=== PATIENT | male | born 1985 | race Caucasian/White ===

== ENCOUNTER 2019-05-12 12:29 | Inpatient (IN) ==
[2019-05-12] MEDS ORDERED: Isovue-370 500 ML BOTTLE IVP ONE (14:08)
[2019-05-12 15:33] LABS: Mean Platelet Volume 8.2 fL (9.4-12.4); Red Cell Distribution Width 12.3 % (11.5-14.5)
[2019-05-12 15:38] LABS: Basophils # 0.1 K/mcL (0.0-0.2); Basophils % 0.2 %; Eosinophils # 0.1 K/mcL (0.0-0.6); Eosinophils % 0.5 %; Hematocrit 42.9 % (37.5-50.1); Hemoglobin 14.2 g/dL (12.9-16.9); Immature Granulocytes % 6.7 % (0-4); Lymphocytes # 2.7 K/mcL (0.6-4.6); Lymphocytes % 10.4 %; Mean Corpuscular HGB Conc 33.1 g/dL (31.6-35.5); Mean Corpuscular Hemoglobin 30.4 pg (28.0-33.3); Mean Corpuscular Volume 91.9 fL (83.0-100.0); Monocytes # 2.4 K/mcL (0.0-1.3); Monocytes % 9.2 %; Neutrophils # 19.2 K/mcL (1.6-8.9); Platelet Count 481 K/mcL (140-400); Red Blood Count 4.67 M/mcL (4.19-5.50); White Blood Count 26.3 K/mcL (4.3-11.1)
[2019-05-12 15:53] LABS: Alanine Aminotransferase 80 Units/L (7-52); Albumin 3.6 g/dL (3.5-5.7); Albumin/Globulin Ratio 0.8 (1.1-2.2); Alkaline Phosphatase 201 Units/L (34-104); Aspartate Amino Transferase 25 Units/L (13-39); BUN/Creatinine Ratio 14 (6-26); Bilirubin,Total 0.5 mg/dL (0.3-1.0); Blood Urea Nitrogen 10 mg/dL (6-20); Calcium 9.1 mg/dL (8.6-10.3); Carbon Dioxide 27 mEq/L (23-29); Chloride 95 mEq/L (98-107); Globulin 4.5 g/dL (2.4-3.5); Glucose 102 mg/dL (70-105); Osmolality,Calculated 273 (280-300); Potassium 4.2 mEq/L (3.5-5.1); Sodium 132 mEq/L (136-145); Total Protein 8.1 g/dL (6.4-8.9); eGFR For African Americans > 60 (> 60); eGFR For Non-African Americans > 60 (> 60)
[2019-05-12] MEDS ORDERED: Piperacillin/Tazobactam 3.375 GM in 0.9 % Sodium Chloride Mini Bag 100 ML IVPB ONE (15:55)
[2019-05-12 16:05] LABS: Large Platelets Present (Not Present); Platelet Estimate Increased (Normal); Reactive Lymphocytes Present (Not Present); Toxic Granulation Present (Not Present); Toxic Vacuolation Present (Not Present)
[2019-05-12 16:06] LABS: Hypersegmented Neutrophils Present (Not Present)
[2019-05-12] MEDS ORDERED: Ibuprofen 600 MG TABLET PO ONE (16:57)
[2019-05-12] MEDS ORDERED: Naloxone 0.4 MG/ML INJ IVP PRN (18:23)
[2019-05-12] MEDS ORDERED: Ondansetron 4 MG/2 ML VIAL IVP PRN (18:23)
[2019-05-12] MEDS ORDERED: 0.9 % Sodium Chloride 3,000 ML IVC ONE (18:34)
[2019-05-12] MEDS ORDERED: 0.9 % Sodium Chloride 500 ML IV.SOLN IVC ONE (18:35)
[2019-05-12] MEDS ORDERED: Vancomycin 500 MG in 0.9 % Sodium Chloride Mini Bag 100 ML IVPB ONE (21:31)
[2019-05-12] MEDS: 0.9 % Sodium Chloride 1,000 ML IVC SCH (22:06)
[2019-05-12] MEDS: *HR* Heparin 5,000 UNIT/ML VIAL SQ SCH (22:07)
[2019-05-12] MEDS: Piperacillin/Tazobactam 3.375 GM in 0.9 % Sodium Chloride Mini Bag 100 ML IVPB SCH (23:46)
[2019-05-13 01:32] LABS: Bilirubin,Urine Negative (Negative); Blood,Urine Negative (Negative); Clarity,Urine Clear (Clear); Color,Urine Yellow (Yellow); Glucose,Urine (UA) Normal (Normal); Ketones,Urine Negative (Negative); Leukocyte Esterase,Urine Negative (Negative); Nitrite,Urine Negative (Negative); Protein,Urine Negative (Neg-Trace); Specific Gravity,Urine 1.016 (1.010-1.025); Urobilinogen,Urine Normal (Normal)
[2019-05-13 02:05] LABS: Hematocrit 41.3 % (37.5-50.1); Hemoglobin 13.5 g/dL (12.9-16.9); Mean Corpuscular HGB Conc 32.7 g/dL (31.6-35.5); Mean Corpuscular Hemoglobin 30.3 pg (28.0-33.3); Mean Corpuscular Volume 92.6 fL (83.0-100.0); Mean Platelet Volume 8.2 fL (9.4-12.4); Platelet Count 473 K/mcL (140-400); Red Blood Count 4.46 M/mcL (4.19-5.50); Red Cell Distribution Width 12.3 % (11.5-14.5); White Blood Count 22.7 K/mcL (4.3-11.1)
[2019-05-13 02:20] LABS: BUN/Creatinine Ratio 12 (6-26); Blood Urea Nitrogen 9 mg/dL (6-20); Calcium 8.8 mg/dL (8.6-10.3); Carbon Dioxide 28 mEq/L (23-29); Chloride 100 mEq/L (98-107); Glucose 125 mg/dL (70-105); Osmolality,Calculated 282 (280-300); Sodium 136 mEq/L (136-145); eGFR For African Americans > 60 (> 60); eGFR For Non-African Americans > 60 (> 60)
[2019-05-13 02:44] LABS: Lymphocytes # 2.7 K/mcL (0.6-4.6); Monocytes # 2.7 K/mcL (0.0-1.3); Neutrophils # 17.3 K/mcL (1.6-8.9)
[2019-05-13 02:45] LABS: Hypersegmented Neutrophils Present (Not Present); Large Platelets Present (Not Present); Platelet Estimate Increased (Normal); Reactive Lymphocytes Present (Not Present); Toxic Granulation Present (Not Present)
[2019-05-13] MEDS: *HR* Heparin 5,000 UNIT/ML VIAL SQ SCH ×3 (06:15→21:35)
[2019-05-13] MEDS: Piperacillin/Tazobactam 3.375 GM in 0.9 % Sodium Chloride Mini Bag 100 ML IVPB SCH ×2 (10:26→16:11)
[2019-05-13] MEDS: 0.9 % Sodium Chloride 1,000 ML IVC SCH (10:26)
[2019-05-13] MEDS: Acetaminophen 325 MG TABLET PO PRN ×3 (10:56→23:59)
[2019-05-14] MEDS: *HR* Heparin 5,000 UNIT/ML VIAL SQ SCH ×3 (05:16→20:56)
[2019-05-14 05:35] LABS: Eosinophils # 0.4 K/mcL (0.0-0.6); Hematocrit 39.6 % (37.5-50.1); Hemoglobin 13.1 g/dL (12.9-16.9); Mean Corpuscular HGB Conc 33.1 g/dL (31.6-35.5); Mean Corpuscular Hemoglobin 30.1 pg (28.0-33.3); Mean Platelet Volume 8.2 fL (9.4-12.4); Platelet Count 450 K/mcL (140-400); Red Blood Count 4.35 M/mcL (4.19-5.50); Red Cell Distribution Width 12.2 % (11.5-14.5)
[2019-05-14 05:56] LABS: Lymphocytes # 2.9 K/mcL (0.6-4.6); Monocytes # 1.1 K/mcL (0.0-1.3); Neutrophils # 12.6 K/mcL (1.6-8.9)
[2019-05-14 06:33] LABS: BUN/Creatinine Ratio 16 (6-26); Blood Urea Nitrogen 12 mg/dL (6-20); Carbon Dioxide 27 mEq/L (23-29); Chloride 100 mEq/L (98-107); Glucose 109 mg/dL (70-105); Osmolality,Calculated 284 (280-300); Potassium 4.3 mEq/L (3.5-5.1); Sodium 137 mEq/L (136-145); eGFR For African Americans > 60 (> 60); eGFR For Non-African Americans > 60 (> 60)
[2019-05-14] MEDS ORDERED: Ondansetron 4 MG/2 ML VIAL ONE (07:04)
[2019-05-14] MEDS ORDERED: *HR* FentaNYL (PF) 100 MCG/2 ML VIAL ONE ×2 (07:04→10:27)
[2019-05-14] MEDS ORDERED: Lidocaine -MPF 4% 5 ML AMPUL ONE (07:04)
[2019-05-14] MEDS ORDERED: *HR* Succinylcholine 200 MG/10 ML VIAL IVP ONE (07:04)
[2019-05-14] MEDS ORDERED: *HR* Midazolam HCl 5 MG/5 ML VIAL IVP ONE (07:04)
[2019-05-14] MEDS ORDERED: *HR* Propofol 200 MG/20 ML VIAL IVP ONE (07:04)
[2019-05-14] MEDS ORDERED: Lidocaine -MPF 2% 2 ML VIAL ONE (07:04)
[2019-05-14] MEDS ORDERED: *HR* Rocuronium Bromide 50 MG/5 ML VIAL ONE ×2 (07:04→09:06)
[2019-05-14] MEDS ORDERED: Dexamethasone 4 MG/ML VIAL ONE (07:04)
[2019-05-14] MEDS ORDERED: Ipratropium/Albuterol Neb 3 ML IH PRN (07:27)
[2019-05-14] MEDS ORDERED: Acetaminophen IV 1,000 MG/100 ML INFUS..BTL IVPB ONE (07:27)
[2019-05-14] MEDS ORDERED: Acetaminophen IV 1,000 MG/100 ML INFUS..BTL ONE (07:28)
[2019-05-14] MEDS ORDERED: Racepinephrine Neb 0.5 ML VIAL IH ONE (07:29)
[2019-05-14] MEDS ORDERED: *HR* HYDROmorphone (PF) 1 MG/ML SYRINGE IVP PRN (07:29)
[2019-05-14] MEDS ORDERED: *HR* Promethazine 25 MG/ML VIAL IVP PRN (07:29)
[2019-05-14] MEDS ORDERED: Ondansetron 4 MG/2 ML VIAL IVP ONE (07:29)
[2019-05-14] MEDS ORDERED: *HR* OxyCODONE Immed Rel 5 MG TABLET PO PRN (07:29)
[2019-05-14] MEDS: Piperacillin/Tazobactam 3.375 GM in 0.9 % Sodium Chloride Mini Bag 100 ML IVPB SCH ×4 (08:45→23:55)
[2019-05-14] MEDS ORDERED: SODIUM CHLORIDE IRRIGATION IR ONE ×2 (10:00→10:57)
[2019-05-14] MEDS ORDERED: VANCOMYCIN IR ONE ×2 (10:00→10:57)
[2019-05-14] MEDS ORDERED: BACITRACIN IR ONE ×2 (10:00→10:57)
[2019-05-14] MEDS ORDERED: *HR* HYDROMORPHONE 2 MG/ML VIAL ONE (10:27)
[2019-05-14] MEDS ORDERED: *HR* HYDROcodone/Acet 5/325 mg TABLET PO PRN ×2 (10:57→13:27)
[2019-05-14] MEDS ORDERED: Ondansetron 4 MG/2 ML VIAL IVP PRN (10:57)
[2019-05-14] MEDS ORDERED: Naloxone 0.4 MG/ML INJ IVP PRN (10:57)
[2019-05-14] MEDS: 0.9 % Sodium Chloride 1,000 ML IVC SCH ×2 (13:45→21:45)
[2019-05-14] MEDS: Gabapentin 300 MG CAPSULE PO SCH ×2 (13:45→20:56)
[2019-05-14] MEDS: Famotidine 20 MG TABLET PO SCH (20:55)
[2019-05-14] MEDS: *HR* HYDROcodone/Acet 5/325 mg TABLET PO PRN (20:56)
[2019-05-15] MEDS: *HR* HYDROcodone/Acet 5/325 mg TABLET PO PRN ×3 (03:50→17:07)
[2019-05-15 04:20] LABS: Basophils # 0.1 K/mcL (0.0-0.2); Basophils % 0.3 %; Eosinophils # 0.1 K/mcL (0.0-0.6); Eosinophils % 0.3 %; Hematocrit 37.3 % (37.5-50.1); Hemoglobin 12.1 g/dL (12.9-16.9); Immature Granulocytes % 2.2 % (0-4); Lymphocytes # 2.7 K/mcL (0.6-4.6); Lymphocytes % 11.3 %; Mean Corpuscular HGB Conc 32.4 g/dL (31.6-35.5); Mean Corpuscular Volume 92.6 fL (83.0-100.0); Mean Platelet Volume 8.1 fL (9.4-12.4); Monocytes # 2.4 K/mcL (0.0-1.3); Monocytes % 10.1 %; Neutrophils # 18.2 K/mcL (1.6-8.9); Platelet Count 469 K/mcL (140-400); Red Blood Count 4.03 M/mcL (4.19-5.50); Red Cell Distribution Width 12.3 % (11.5-14.5); Segmented Neutrophils % 75.8 %
[2019-05-15 04:39] LABS: Calcium 8.3 mg/dL (8.6-10.3); Potassium 5.3 mEq/L (3.5-5.1)
[2019-05-15] MEDS: 0.9 % Sodium Chloride 1,000 ML IVC SCH ×3 (06:03→19:46)
[2019-05-15] MEDS: *HR* Heparin 5,000 UNIT/ML VIAL SQ SCH ×3 (06:04→20:17)
[2019-05-15] MEDS: Famotidine 20 MG TABLET PO SCH (07:42)
[2019-05-15] MEDS: Gabapentin 300 MG CAPSULE PO SCH ×2 (07:42→20:16)
[2019-05-15] MEDS: Piperacillin/Tazobactam 3.375 GM in 0.9 % Sodium Chloride Mini Bag 100 ML IVPB SCH ×2 (07:43→19:47)
[2019-05-15] MEDS ORDERED: Iron Sucrose Complex 400 MG in 0.9 % Sodium Chloride 250 ML IVPB ONE (08:58)
[2019-05-15 11:58] LABS: Calcium 7.9 mg/dL (8.6-10.3); Potassium 4.8 mEq/L (3.5-5.1)
[2019-05-15] MEDS ORDERED: 0.9 % Sodium Chloride 500 ML IV.SOLN IVC ONE (13:38)
[2019-05-15] MEDS ORDERED: Acetaminophen IV 1,000 MG/100 ML INFUS..BTL IVPB SCH (16:00)
[2019-05-15 18:18] LABS: Calcium 7.9 mg/dL (8.6-10.3); Potassium 5.2 mEq/L (3.5-5.1)
[2019-05-15] MEDS ORDERED: 0.9 % Sodium Chloride 1,000 ML IVC ONE (18:49)
[2019-05-16] MEDS: 0.9 % Sodium Chloride 1,000 ML IVC SCH ×3 (00:10→22:38)
[2019-05-16] MEDS: *HR* HYDROcodone/Acet 5/325 mg TABLET PO PRN ×3 (00:12→14:46)
[2019-05-16 04:07] LABS: Basophils # 0.1 K/mcL (0.0-0.2); Basophils % 0.4 %; Eosinophils # 0.1 K/mcL (0.0-0.6); Eosinophils % 0.7 %; Hemoglobin 11.4 g/dL (12.9-16.9); Immature Granulocytes % 2.3 % (0-4); Lymphocytes % 10.9 %; Mean Corpuscular HGB Conc 32.6 g/dL (31.6-35.5); Mean Corpuscular Hemoglobin 30.8 pg (28.0-33.3); Mean Corpuscular Volume 94.6 fL (83.0-100.0); Mean Platelet Volume 8.4 fL (9.4-12.4); Monocytes # 2.3 K/mcL (0.0-1.3); Monocytes % 12.2 %; Neutrophils # 13.7 K/mcL (1.6-8.9); Platelet Count 441 K/mcL (140-400); Red Cell Distribution Width 12.5 % (11.5-14.5); Segmented Neutrophils % 73.5 %; White Blood Count 18.7 K/mcL (4.3-11.1)
[2019-05-16 04:27] LABS: Calcium 7.9 mg/dL (8.6-10.3); Potassium 4.7 mEq/L (3.5-5.1)
[2019-05-16] MEDS: *HR* Heparin 5,000 UNIT/ML VIAL SQ SCH ×3 (06:08→20:33)
[2019-05-16] MEDS: Piperacillin/Tazobactam 3.375 GM in 0.9 % Sodium Chloride Mini Bag 100 ML IVPB SCH (07:47)
[2019-05-16] MEDS: Famotidine 20 MG TABLET PO SCH (07:47)
[2019-05-16] MEDS ORDERED: Acetaminophen IV 1,000 MG/100 ML INFUS..BTL IVPB SCH (08:00)
[2019-05-16] MEDS ORDERED: Aminoglycoside Consult 1 EACH MC ONE (08:17)
[2019-05-16] MEDS ORDERED: 0.9 % Sodium Chloride 1,000 ML IV ONE (08:33)
[2019-05-16 14:55] LABS: Calcium 7.8 mg/dL (8.6-10.3); Potassium 5.6 mEq/L (3.5-5.1)
[2019-05-16] MEDS ORDERED: Piperacillin/Tazobactam 3.375 GM in 0.9 % Sodium Chloride Mini Bag 100 ML IVPB SCH (16:00)
[2019-05-16] MEDS ORDERED: ceFAZolin 1,000 MG in 0.9 % Sodium Chloride Mini Bag 100 ML IVPB SCH (16:00)
[2019-05-16 17:19] LABS: Bilirubin,Urine Negative (Negative); Blood,Urine Trace (Negative); Clarity,Urine Clear (Clear); Color,Urine Yellow (Yellow); Glucose,Urine (UA) Normal (Normal); Ketones,Urine Negative (Negative); Leukocyte Esterase,Urine Negative (Negative); Nitrite,Urine Negative (Negative); Protein,Urine Negative (Neg-Trace); Specific Gravity,Urine 1.007 (1.010-1.025); Urobilinogen,Urine Normal (Normal)
[2019-05-16 17:21] LABS: Bacteria,Urine None Seen per hpf (None-Few); Hyaline Casts,Urine None Seen per lpf (None-Few); RBC,Urine 0-3 per hpf (0-3); Squamous Epithelial Cell,Urine None Seen per lpf (None-Few); WBC,Urine 0-3 per hpf (0-3)
[2019-05-16 17:26] LABS: Sodium, Urine 46.8 mEq/L
[2019-05-16] MEDS: Gabapentin 300 MG CAPSULE PO SCH (20:33)
[2019-05-17] MEDS: *HR* HYDROcodone/Acet 5/325 mg TABLET PO PRN ×4 (02:22→18:42)
[2019-05-17 03:42] LABS: Hematocrit 31.3 % (37.5-50.1); Hemoglobin 10.3 g/dL (12.9-16.9); Mean Corpuscular HGB Conc 32.9 g/dL (31.6-35.5); Mean Corpuscular Hemoglobin 30.2 pg (28.0-33.3); Mean Corpuscular Volume 91.8 fL (83.0-100.0); Mean Platelet Volume 8.2 fL (9.4-12.4); Platelet Count 439 K/mcL (140-400); Red Blood Count 3.41 M/mcL (4.19-5.50); Red Cell Distribution Width 12.6 % (11.5-14.5); White Blood Count 21.8 K/mcL (4.3-11.1)
[2019-05-17 04:00] LABS: Calcium 8.1 mg/dL (8.6-10.3); Potassium 5.1 mEq/L (3.5-5.1)
[2019-05-17 04:08] LABS: Hepatitis B Surface Antibody < 3.10 mIU/mL
[2019-05-17 04:19] LABS: Hepatitis B Surface Antigen Nonreactive (Nonreactive)
[2019-05-17 04:47] LABS: Hepatitis C Virus Antibody Nonreactive (Nonreactive)
[2019-05-17 04:48] LABS: HIV-1&2 Antibody & p24 Ag Nonreactive (Nonreactive)
[2019-05-17] MEDS: *HR* Heparin 5,000 UNIT/ML VIAL SQ SCH ×3 (05:52→20:20)
[2019-05-17] MEDS: 0.9 % Sodium Chloride 1,000 ML IVC SCH ×3 (06:48→23:55)
[2019-05-17] MEDS: Famotidine 20 MG TABLET PO SCH (08:27)
[2019-05-17] MEDS ORDERED: ceFAZolin 1,000 MG in Water for inj. (sterile) 10 ML IVPB SCH (09:00)
[2019-05-17] MEDS: ceFAZolin 1,000 MG in Water for inj. (sterile) 10 ML IVPB SCH ×2 (09:29→20:20)
[2019-05-17] MEDS: *HR* FentaNYL (PF) 100 MCG/2 ML VIAL IVP PRN ×3 (10:36→23:24)
[2019-05-17] MEDS ORDERED: *HR* Heparin 5,000 UNIT/ML VIAL IVP PRN ×2 (10:44)
[2019-05-17] MEDS ORDERED: *HR* Heparin 5,000 UNIT/ML VIAL IVP ONE (10:44)
[2019-05-17] MEDS ORDERED: Heparin 25,000 UNIT/250 ML D5W 25,000 UNIT/250 ML IV.SOLN IVC SCH (10:45)
[2019-05-17 11:11] LABS: Hemoglobin 10.2 g/dL (12.9-16.9); Mean Corpuscular HGB Conc 32.9 g/dL (31.6-35.5); Mean Corpuscular Hemoglobin 30.2 pg (28.0-33.3); Mean Corpuscular Volume 91.7 fL (83.0-100.0); Mean Platelet Volume 8.1 fL (9.4-12.4); Platelet Count 428 K/mcL (140-400); Red Blood Count 3.38 M/mcL (4.19-5.50); Red Cell Distribution Width 12.8 % (11.5-14.5); White Blood Count 19.6 K/mcL (4.3-11.1)
[2019-05-17 11:19] LABS: Heparin anti-factor XA UFH 0.02 IU/mL (0.30-0.70); INR 1.1; Prothrombin Time 12.9 Seconds (9.4-12.1)
[2019-05-17] MEDS: Aspirin Enteric Coated 325 MG Tablet PO SCH (13:49)
[2019-05-17] MEDS: Gabapentin 300 MG CAPSULE PO SCH (20:20)
[2019-05-18 03:53] LABS: Basophils # 0.1 K/mcL (0.0-0.2); Basophils % 0.5 %; Eosinophils # 0.2 K/mcL (0.0-0.6); Hematocrit 32.7 % (37.5-50.1); Hemoglobin 10.7 g/dL (12.9-16.9); Immature Granulocytes % 1.5 % (0-4); Lymphocytes # 1.7 K/mcL (0.6-4.6); Lymphocytes % 8.8 %; Mean Corpuscular HGB Conc 32.7 g/dL (31.6-35.5); Mean Corpuscular Hemoglobin 31.1 pg (28.0-33.3); Mean Corpuscular Volume 95.1 fL (83.0-100.0); Mean Platelet Volume 8.2 fL (9.4-12.4); Monocytes # 1.9 K/mcL (0.0-1.3); Monocytes % 9.7 %; Neutrophils # 15.2 K/mcL (1.6-8.9); Platelet Count 476 K/mcL (140-400); Red Blood Count 3.44 M/mcL (4.19-5.50); Red Cell Distribution Width 12.8 % (11.5-14.5); Segmented Neutrophils % 78.5 %; White Blood Count 19.4 K/mcL (4.3-11.1)
[2019-05-18] MEDS: *HR* HYDROcodone/Acet 5/325 mg TABLET PO PRN (03:57)
[2019-05-18 04:10] LABS: Calcium 8.5 mg/dL (8.6-10.3); Potassium 5.6 mEq/L (3.5-5.1)
[2019-05-18] MEDS: *HR* Heparin 5,000 UNIT/ML VIAL SQ SCH ×3 (05:49→19:59)
[2019-05-18] MEDS: Famotidine 20 MG TABLET PO SCH (08:58)
[2019-05-18] MEDS: 0.9 % Sodium Chloride 1,000 ML IVC SCH ×2 (08:59)
[2019-05-18] MEDS: Aspirin Enteric Coated 325 MG Tablet PO SCH (08:59)
[2019-05-18] MEDS: *HR* FentaNYL (PF) 100 MCG/2 ML VIAL IVP PRN (09:04)
[2019-05-18] MEDS: ceFAZolin 1,000 MG in Water for inj. (sterile) 10 ML IVPB SCH ×2 (09:48→19:58)
[2019-05-18] MEDS: Acetylcysteine 10% 2 ML INHSOL IH SCH ×4 (11:00→19:58)
[2019-05-18] MEDS: Ipratropium/Albuterol Neb 3 ML IH SCH ×3 (11:00→19:58)
[2019-05-18] MEDS: Sodium Bicarbonate 75 MEQ in 0.45 % Sodium Chloride 1,000 ML IVC SCH ×2 (11:51→22:00)
[2019-05-18] MEDS: *HR* HYDROcodone/Acet 7.5/325 mg TABLET PO PRN ×2 (11:55→18:09)
[2019-05-18] MEDS: Gabapentin 300 MG CAPSULE PO SCH (19:59)
[2019-05-19] MEDS: Ipratropium/Albuterol Neb 3 ML IH SCH ×7 (00:15→23:42)
[2019-05-19] MEDS: Acetylcysteine 10% 2 ML INHSOL IH SCH ×7 (00:15→23:42)
[2019-05-19] MEDS: *HR* HYDROcodone/Acet 7.5/325 mg TABLET PO PRN ×4 (01:25→20:20)
[2019-05-19] MEDS: Sodium Bicarbonate 75 MEQ in 0.45 % Sodium Chloride 1,000 ML IVC SCH (04:32)
[2019-05-19] MEDS: *HR* Heparin 5,000 UNIT/ML VIAL SQ SCH ×3 (04:33→20:29)
[2019-05-19] MEDS: 0.9 % Sodium Chloride 1,000 ML IVC SCH ×3 (08:14→15:12)
[2019-05-19] MEDS: Famotidine 20 MG TABLET PO SCH (08:19)
[2019-05-19] MEDS: Aspirin Enteric Coated 325 MG Tablet PO SCH (08:19)
[2019-05-19 08:45] LABS: Basophils # 0.1 K/mcL (0.0-0.2); Basophils % 0.4 %; Eosinophils # 0.3 K/mcL (0.0-0.6); Hematocrit 31.8 % (37.5-50.1); Hemoglobin 10.3 g/dL (12.9-16.9); Immature Granulocytes % 1.6 % (0-4); Lymphocytes % 11.7 %; Mean Corpuscular HGB Conc 32.4 g/dL (31.6-35.5); Mean Corpuscular Hemoglobin 30.6 pg (28.0-33.3); Mean Corpuscular Volume 94.4 fL (83.0-100.0); Mean Platelet Volume 8.1 fL (9.4-12.4); Monocytes % 11.7 %; Neutrophils # 12.1 K/mcL (1.6-8.9); Platelet Count 503 K/mcL (140-400); Red Blood Count 3.37 M/mcL (4.19-5.50); Red Cell Distribution Width 13.1 % (11.5-14.5); Segmented Neutrophils % 72.6 %; White Blood Count 16.7 K/mcL (4.3-11.1)
[2019-05-19 09:04] LABS: Calcium 8.6 mg/dL (8.6-10.3); Potassium 5.2 mEq/L (3.5-5.1)
[2019-05-19] MEDS ORDERED: Iron Sucrose Complex 400 MG in 0.9 % Sodium Chloride 250 ML IVPB ONE (14:32)
[2019-05-19] MEDS: ceFAZolin 1,000 MG in Water for inj. (sterile) 10 ML IVPB SCH (20:20)
[2019-05-19] MEDS: Gabapentin 300 MG CAPSULE PO SCH (20:20)
[2019-05-20] MEDS: *HR* HYDROcodone/Acet 7.5/325 mg TABLET PO PRN ×2 (02:19→08:35)
[2019-05-20] MEDS: Acetylcysteine 10% 2 ML INHSOL IH SCH ×2 (04:13→07:24)
[2019-05-20] MEDS: Ipratropium/Albuterol Neb 3 ML IH SCH ×6 (04:13→23:04)
[2019-05-20] MEDS: *HR* Heparin 5,000 UNIT/ML VIAL SQ SCH ×3 (05:51→20:24)
[2019-05-20 06:43] LABS: Basophils # 0.1 K/mcL (0.0-0.2); Basophils % 0.4 %; Eosinophils # 0.5 K/mcL (0.0-0.6); Eosinophils % 3.5 %; Hematocrit 29.3 % (37.5-50.1); Hemoglobin 9.5 g/dL (12.9-16.9); Immature Granulocytes % 2.1 % (0-4); Lymphocytes # 1.9 K/mcL (0.6-4.6); Lymphocytes % 13.6 %; Mean Corpuscular HGB Conc 32.4 g/dL (31.6-35.5); Mean Corpuscular Hemoglobin 30.3 pg (28.0-33.3); Mean Corpuscular Volume 93.3 fL (83.0-100.0); Mean Platelet Volume 8.1 fL (9.4-12.4); Monocytes # 1.9 K/mcL (0.0-1.3); Monocytes % 13.9 %; Neutrophils # 9.1 K/mcL (1.6-8.9); Platelet Count 474 K/mcL (140-400); Red Blood Count 3.14 M/mcL (4.19-5.50); Red Cell Distribution Width 13.2 % (11.5-14.5); Segmented Neutrophils % 66.5 %; White Blood Count 13.6 K/mcL (4.3-11.1)
[2019-05-20 07:05] LABS: Calcium 8.7 mg/dL (8.6-10.3); Potassium 5.2 mEq/L (3.5-5.1)
[2019-05-20] MEDS: Famotidine 20 MG TABLET PO SCH (08:28)
[2019-05-20] MEDS: 0.9 % Sodium Chloride 1,000 ML IVC SCH ×3 (08:28→21:13)
[2019-05-20] MEDS: Aspirin Enteric Coated 325 MG Tablet PO SCH (08:29)
[2019-05-20] MEDS ORDERED: Iron Sucrose Complex 400 MG in 0.9 % Sodium Chloride 250 ML IVPB ONE (09:46)
[2019-05-20] MEDS ORDERED: 0.9 % Sodium Chloride 1,000 ML IVC SCH (10:00)
[2019-05-20] MEDS: *HR* HYDROcodone/Acet 5/325 mg TABLET PO PRN ×2 (13:53→19:46)
[2019-05-20] MEDS: ceFAZolin 1,000 MG in Water for inj. (sterile) 10 ML IVPB SCH (19:46)
[2019-05-20] MEDS: Gabapentin 300 MG CAPSULE PO SCH (19:46)
[2019-05-21] MEDS: *HR* HYDROcodone/Acet 5/325 mg TABLET PO PRN ×3 (03:03→18:43)
[2019-05-21] MEDS: Ipratropium/Albuterol Neb 3 ML IH SCH ×6 (03:21→23:22)
[2019-05-21] MEDS: *HR* Heparin 5,000 UNIT/ML VIAL SQ SCH ×3 (04:54→21:34)
[2019-05-21] MEDS: 0.9 % Sodium Chloride 1,000 ML IVC SCH ×3 (04:55→21:32)
[2019-05-21 05:15] LABS: Basophils # 0.1 K/mcL (0.0-0.2); Basophils % 0.5 %; Eosinophils # 0.6 K/mcL (0.0-0.6); Eosinophils % 3.9 %; Hemoglobin 9.6 g/dL (12.9-16.9); Immature Granulocytes % 2.4 % (0-4); Lymphocytes # 1.7 K/mcL (0.6-4.6); Lymphocytes % 11.5 %; Mean Corpuscular Hemoglobin 30.9 pg (28.0-33.3); Mean Corpuscular Volume 96.5 fL (83.0-100.0); Mean Platelet Volume 8.2 fL (9.4-12.4); Monocytes # 1.9 K/mcL (0.0-1.3); Monocytes % 12.9 %; Neutrophils # 10.2 K/mcL (1.6-8.9); Platelet Count 483 K/mcL (140-400); Red Blood Count 3.11 M/mcL (4.19-5.50); Red Cell Distribution Width 13.1 % (11.5-14.5); Segmented Neutrophils % 68.8 %; White Blood Count 14.8 K/mcL (4.3-11.1)
[2019-05-21 05:32] LABS: Calcium 8.8 mg/dL (8.6-10.3); Potassium 5.6 mEq/L (3.5-5.1)
[2019-05-21] MEDS: Aspirin Enteric Coated 325 MG Tablet PO SCH (07:29)
[2019-05-21] MEDS: Famotidine 20 MG TABLET PO SCH (07:29)
[2019-05-21] MEDS ORDERED: Iron Sucrose Complex 400 MG in 0.9 % Sodium Chloride 250 ML IVPB ONE (09:21)
[2019-05-21] MEDS: ceFAZolin 1,000 MG in Water for inj. (sterile) 10 ML IVPB SCH (21:31)
[2019-05-21] MEDS: Gabapentin 300 MG CAPSULE PO SCH (21:32)
[2019-05-22] MEDS: *HR* Heparin 5,000 UNIT/ML VIAL SQ SCH ×3 (04:07→21:31)
[2019-05-22] MEDS: *HR* HYDROcodone/Acet 5/325 mg TABLET PO PRN ×2 (04:07→18:12)
[2019-05-22] MEDS: Ipratropium/Albuterol Neb 3 ML IH SCH ×5 (04:47→19:40)
[2019-05-22] MEDS: 0.9 % Sodium Chloride 1,000 ML IVC SCH ×3 (05:23→19:00)
[2019-05-22] MEDS: Famotidine 20 MG TABLET PO SCH (07:19)
[2019-05-22] MEDS: Aspirin Enteric Coated 325 MG Tablet PO SCH (07:19)
[2019-05-22 10:06] LABS: Basophils # 0.1 K/mcL (0.0-0.2); Basophils % 0.5 %; Eosinophils # 0.5 K/mcL (0.0-0.6); Eosinophils % 3.3 %; Hematocrit 27.3 % (37.5-50.1); Hemoglobin 8.6 g/dL (12.9-16.9); Lymphocytes # 1.9 K/mcL (0.6-4.6); Lymphocytes % 13.5 %; Mean Corpuscular HGB Conc 31.5 g/dL (31.6-35.5); Mean Corpuscular Hemoglobin 30.3 pg (28.0-33.3); Mean Corpuscular Volume 96.1 fL (83.0-100.0); Mean Platelet Volume 8.4 fL (9.4-12.4); Monocytes # 1.5 K/mcL (0.0-1.3); Monocytes % 10.4 %; Neutrophils # 9.7 K/mcL (1.6-8.9); Platelet Count 447 K/mcL (140-400); Red Blood Count 2.84 M/mcL (4.19-5.50); Red Cell Distribution Width 12.9 % (11.5-14.5); Segmented Neutrophils % 69.3 %
[2019-05-22 10:28] LABS: Calcium 8.6 mg/dL (8.6-10.3); Potassium 5.1 mEq/L (3.5-5.1)
[2019-05-22] MEDS: Gabapentin 300 MG CAPSULE PO SCH (21:31)
[2019-05-22] MEDS: ceFAZolin 1,000 MG in Water for inj. (sterile) 10 ML IVPB SCH (21:31)
[2019-05-23] MEDS ORDERED: Ipratropium/Albuterol Neb 3 ML IH PRN (00:11)
[2019-05-23] MEDS: Ipratropium/Albuterol Neb 3 ML IH SCH (00:12)
[2019-05-23] MEDS: *HR* HYDROcodone/Acet 5/325 mg TABLET PO PRN ×4 (03:30→21:56)
[2019-05-23] MEDS: *HR* Heparin 5,000 UNIT/ML VIAL SQ SCH ×3 (06:00→21:03)
[2019-05-23 06:20] LABS: Basophils # 0.1 K/mcL (0.0-0.2); Basophils % 0.5 %; Eosinophils # 0.5 K/mcL (0.0-0.6); Eosinophils % 3.6 %; Hematocrit 28.7 % (37.5-50.1); Hemoglobin 9.3 g/dL (12.9-16.9); Immature Granulocytes % 3.7 % (0-4); Lymphocytes # 1.9 K/mcL (0.6-4.6); Lymphocytes % 12.5 %; Mean Corpuscular HGB Conc 32.4 g/dL (31.6-35.5); Mean Corpuscular Hemoglobin 30.5 pg (28.0-33.3); Mean Corpuscular Volume 94.1 fL (83.0-100.0); Mean Platelet Volume 8.2 fL (9.4-12.4); Monocytes # 1.5 K/mcL (0.0-1.3); Monocytes % 9.9 %; Neutrophils # 10.4 K/mcL (1.6-8.9); Platelet Count 468 K/mcL (140-400); Red Blood Count 3.05 M/mcL (4.19-5.50); Red Cell Distribution Width 12.8 % (11.5-14.5); Segmented Neutrophils % 69.8 %; White Blood Count 14.9 K/mcL (4.3-11.1)
[2019-05-23 06:39] LABS: Potassium 5.2 mEq/L (3.5-5.1)
[2019-05-23] MEDS: Famotidine 20 MG TABLET PO SCH (07:53)
[2019-05-23] MEDS: Aspirin Enteric Coated 325 MG Tablet PO SCH (07:54)
[2019-05-23] MEDS ORDERED: ceFAZolin 1,000 MG in Water for inj. (sterile) 10 ML IVPB SCH (09:00)
[2019-05-23] MEDS: 0.9 % Sodium Chloride 1,000 ML IVC SCH ×2 (10:00→17:39)
[2019-05-23] MEDS: Gabapentin 300 MG CAPSULE PO SCH (21:03)
[2019-05-24] MEDS: 0.9 % Sodium Chloride 1,000 ML IVC SCH ×2 (02:00→09:46)
[2019-05-24 03:23] LABS: Basophils # 0.1 K/mcL (0.0-0.2); Basophils % 0.7 %; Eosinophils # 0.6 K/mcL (0.0-0.6); Eosinophils % 3.7 %; Hematocrit 29.5 % (37.5-50.1); Hemoglobin 9.7 g/dL (12.9-16.9); Lymphocytes # 2.5 K/mcL (0.6-4.6); Mean Corpuscular HGB Conc 32.9 g/dL (31.6-35.5); Mean Corpuscular Hemoglobin 30.7 pg (28.0-33.3); Mean Corpuscular Volume 93.4 fL (83.0-100.0); Mean Platelet Volume 8.2 fL (9.4-12.4); Monocytes % 12.1 %; Neutrophils # 10.9 K/mcL (1.6-8.9); Platelet Count 458 K/mcL (140-400); Red Blood Count 3.16 M/mcL (4.19-5.50); Red Cell Distribution Width 12.8 % (11.5-14.5); Segmented Neutrophils % 64.5 %; White Blood Count 16.9 K/mcL (4.3-11.1)
[2019-05-24 03:46] LABS: Calcium 9.1 mg/dL (8.6-10.3); Potassium 5.3 mEq/L (3.5-5.1)
[2019-05-24] MEDS: *HR* HYDROcodone/Acet 5/325 mg TABLET PO PRN ×2 (04:42→09:46)
[2019-05-24] MEDS: *HR* Heparin 5,000 UNIT/ML VIAL SQ SCH ×2 (05:31→13:44)
[2019-05-24] MEDS: Aspirin Enteric Coated 325 MG Tablet PO SCH (07:31)
[2019-05-24] MEDS: Famotidine 20 MG TABLET PO SCH (07:32)
[2019-05-24 10:37] VITALS: BP 150/98
== END 2019-05-24 15:19 | disposition home health service (06) | DRG 710 ==
LOC: 2NENU 12:29 → EMEROOARM 12:29 → SUATTDRO 18:04 → 2NENU 18:34 → SUATTDRO 05-13 14:23 → ICNU 05-14 09:18 → 2NNU 05-15 15:10 → 3ANU 05-23 10:14
PROVIDERS: ADMIT Internal Medicine; ATTEND Internal Medicine